=== PATIENT | male | born 1955 | race Caucasian/White ===

== ENCOUNTER → 2020-10-18 | Outpatient (CLI) | payer MEDICARE, BC ==
--- NOTE | 2020-10-18 12:37 | REP ---
INDICATION: S13.4XXA SPRAIN OF LIGAMENTS OF CERVICAL SPINE. COMPARISON: None. TECHNIQUE: Seven views including flexion/extension lateral views were obtained. . FINDINGS: Spondylosis at the C5-6 level with disc space narrowing, osteophyte formation and bilateral foraminal encroachment. Multilevel uncovertebral/facet arthropathy no fractures. On the flexion/extension views there is instability at the C5-6 level with retrolisthesis C5 on C6 of 4 mm.. IMPRESSION: The ceases sent instability C5-6 level. C5-6 spondylosis. <Electronically signed by Adam Pryor > 10/18/20 [id number]
== END ==
LOC: M WUC 10:45
PROVIDERS: ATTEND Physician Assistant
DX: S13.4XXA Sprain of ligaments of cervical spine, initial encounter (principal); W18.30XA Fall on same level, unspecified, initial encounter; Y92.009 Unspecified place in unspecified non-institutional (private) residence as the place of occurrence of the external cause